=== PATIENT | male | born 1985 | race Caucasian/White ===

== ENCOUNTER → 2019-04-21 | Outpatient (CLI) | payer OTHER ==
[~2019-04-21] MED LIST: AMITRIPTYLINE H75 M1 PO; ATIVAN 1MG T1 MG/TAB PO; CATAFLAM50 MG PO; CELEXA10 MG PO; FLEXERIL 1010 MG/TAB
== END ==
LOC: COL.RAD 09:36
DX: M54.2 Cervicalgia (principal); M79.601 Pain in right arm

== ENCOUNTER 2023-01-22 11:15 | Outpatient (RCR) | payer BC | END 2023-02-09 | disposition home or self-care (01) | LOC: WSOT | DX: G56.21 Lesion of ulnar nerve, right upper limb (principal); M77.01 Medial epicondylitis, right elbow ==

== ENCOUNTER 2023-11-10 14:00 | Outpatient (RCR) | payer BC | END 2023-11-12 | disposition home or self-care (01) | LOC: WSOT | DX: G56.21 Lesion of ulnar nerve, right upper limb (principal); M77.01 Medial epicondylitis, right elbow; R20.2 Paresthesia of skin ==